=== PATIENT | male | born 1985 | race Caucasian/White ===

== ENCOUNTER 2022-10-11 21:07 | Emergency (ER) | payer SELFPAY ==
[~2022-10-11] VITALS: Ht 180.3 cm; Wt 90.7 kg
[2022-10-11] MEDS ORDERED: IBUPROFEN 800 MG TABLET PO ONE (22:30)
[2022-10-11] MEDS ORDERED: IBUPROFEN 800 MG TABLET ONE (22:31)
[2022-10-12] MEDS ORDERED: IBUP-1958 PO (00:16)
[2022-10-12] MEDS ORDERED: CYCL10TA9 PO (00:16)
[2022-10-12 00:21] VITALS: BP 123/79; O2SAT 97
== END 2022-10-12 00:21 | disposition home or self-care (01) ==
LOC: ER 21:12
DX: S33.5XXA Sprain of ligaments of lumbar spine, initial encounter (principal); S43.401A Unspecified sprain of right shoulder joint, initial encounter; J45.909 Unspecified asthma, uncomplicated; Z88.0 Allergy status to penicillin; V89.2XXA Person injured in unspecified motor-vehicle accident, traffic, initial encounter; Y93.89 Activity, other specified; Y92.89 Other specified places as the place of occurrence of the external cause; Y99.8 Other external cause status
CPT/HCPCS: 72072; 72100; A4663